=== PATIENT | female | born 1995 | race Two or more races ===

== ENCOUNTER 2017-09-29 20:50 | Emergency (ER) | payer BC ==
[2017-09-29 21:01] VITALS: BMI 16.8
--- NOTE | 2017-09-29 21:03 | PDOC ---
Rapid Medical Evaluation Chief Complaint: Headache Time Seen by Provider: 09/29/17 20:59 Medical Evaluation: 09/29/17 20:59 I have performed a brief in-person evaluation of this patient. The patient presents with a chief complaint of: nausea, abd pain, dysmenorhea= menses x 12 days, no fevers,+ URI symptoms Pertinent physical exam findings: pale, , frontal sinus pain and fullness, lungs clear. Tired I have ordered the following: UA/UCG , type and screen, cbc, cmp The patient will proceed to the ED for further evaluation. 09/29/17 21:02 09/29/17 21:03
[2017-09-29 21:40] LABS: URINE APPEARANCE CLEAR; URINE BILIRUBIN NEGATIVE (<2.0 mg/dL); URINE BLOOD 2+ (NEGATIVE); URINE COLOR LTYELLOW; URINE GLUCOSE (UA) NEGATIVE (NEGATIVE); URINE KETONE NEGATIVE (NEGATIVE); URINE NITRITE NEGATIVE (NEGATIVE); URINE UROBILINOGEN 4.0 E.U/dl mg/dL (0.2-1.0)
[2017-09-29 21:41] LABS: URINE LEUK ESTERASE 1+ (NEGATIVE); URINE PROTEIN 1+ (NEGATIVE)
[2017-09-29 21:44] LABS: EPI CELLS RARE /HPF (FEW); URINE MUCUS RARE
[2017-09-29 22:11] LABS: BASO % 0.3 % (0-2.0); EOS % 0.1 % (0-4.5); HEMATOCRIT 35.2 % (32.4-45.2); HEMOGLOBIN 11.9 GM/dL (10.7-15.3); LYMPH % 9.9 % (8-40); MCH 30.3 pg (25.7-33.7); MCHC 33.7 g/dl (32.0-36.0); MEAN PLT VOLUME 10.1 fl (7.5-11.1); MONO % 11.5 % (3.8-10.2); NEUT % 78.2 % (42.8-82.8); PLATELET COUNT 148 K/MM3 (134-434); RBC 3.91 M/mm3 (3.60-5.2); RDW 12.8 % (11.6-15.6); WHITE BLOOD COUNT 5.7 K/mm3 (4.0-10.0)
[2017-09-29 22:30] LABS: ALBUMIN 3.4 g/dl (3.4-5.0); ALK PHOS 46 U/L (45-117); ANION GAP 8 (8-16); BILIRUBIN,TOTAL 0.3 mg/dL (0.2-1.0); BLOOD UREA NITROGEN 5 mg/dL (7-18); CHLORIDE 105 mmol/L (98-107); CO2 27 mmol/L (21-32); CREATININE 0.9 mg/dL (0.55-1.02); GLUCOSE,RANDOM 105 mg/dL (74-106); POTASSIUM 3.7 mmol/L (3.5-5.1); SGOT/AST 20 U/L (15-37); SGPT/ALT 26 U/L (12-78); SODIUM 140 mmol/L (136-145); TOT PROT 6.6 g/dl (6.4-8.2)
[2017-09-29 22:54] LABS: HCG,QUALITATIVE URINE NEGATIVE
[2017-09-29] MEDS ORDERED: SODIUM CHLORIDE 0.9% 1000 ML INFUS.BAG IV ONE (23:52)
[2017-09-29] MEDS ORDERED: KETOROLAC TROMETHAMINE 30 MG/1 ML VIAL IVPUSH ONE (23:52)
[2017-09-29] MEDS ORDERED: ACETAMINOPHEN 1000 MG/100 ML VIAL (NON FORMULARY) IVPB ONE (23:52)
[2017-09-30] MEDS ORDERED: ACETAMINOPHEN INJECTION 100 ML IVPB ONE (00:16)
[2017-09-30] MEDS ORDERED: KETOROLAC TROMETHAMINE 30 MG/1 ML VIAL ONE (00:17)
[2017-09-30] MEDS ORDERED: CEFTRIAXONE 1 GM in DEXTROSE 5%-WATER - 100 ML IVPB ONE (00:41)
--- NOTE | 2017-09-30 00:59 | PDOC ---
History of Present Illness - General History Source: Patient Exam Limitations: No Limitations - History of Present Illness Initial Comments: 09/30/17 01:14 The patient is a 21 year old female with a significant PMH of chronic UTI who presents to the emergency department with a severe headache since yesterday. The patient reports that she has been experiencing intermittent headaches for 12 days. The patient states that she usually takes medication for frequent migraines but, last night when her headache began it was not alleviated by medication. The patient describes her headache as a burning sensation that is constant. She states that she has been unable to eat secondary to her headache, she states that the smell of foods makes her nauseous. The patient also reports experiencing constant lower back pain . she reports that she was last treated for a UTI 3 weeks ago . she denies any urinary symptoms, or abdominal pain. The patient denies fever, chills, vomit, diarrhea and constipation. She denies any chest pain, shortness of breath, and dizziness. The patient denies any other complaints. <Shai Allison - Last Filed: 09/30/17 01:50> <Ovi Méndez - Last Filed: 09/30/17 02:00> - General Chief Complaint: Weakness Stated Complaint: FATIGUE Time Seen by Provider: 09/29/17 20:59 Past History <Shai Allison - Last Filed: 09/30/17 01:50> - Past Medical History COPD: No - Suicide/Smoking/Psychosocial Hx Smoking History: Never smoked <Ovi Méndez - Last Filed: 09/30/17 02:00> - Past Medical History Allergies/Adverse Reactions: Allergies Allergy/AdvReac Type Severity Reaction Status Date / Time No Known Allergies Allergy Verified 09/29/17 21:01 Home Medications: Ambulatory Orders Cephalexin Monohydrate [Keflex -] 500 mg PO Q8H 14 Days #42 capsule 09/30/17 Ondansetron [Zofran Odt -] 4 mg SL BID #14 od.tablet 09/30/17 Review of Systems - Review of Systems Able to Perform ROS?: Yes Comments:: 09/30/17 01:14 Constitutional: No recent illness; no fever ENT: No sore throat Cardiovascular: No palpitations; no chest pain Pulmonary: No cough; no trouble breathing Gastrointestinal:(+)nausea; no vomiting; no diarrhea Genitourinary: No urinary problems; no hematuria Skin: No rash Lymph system: No swollen glands Musculoskeletal: No joint swelling Neurological: (+)Headache. No weakness; No numbness; no vertigo; no lightheadedness Psychiatric:No anxiety; no depression ROS: A complete review of 10 out of 10 review of systems is taken and is negative apart from what is previously mentioned below and in the HPI. <Shai Allison - Last Filed: 09/30/17 01:50> *Physical Exam - Vital Signs Last Vital Signs Temp Pulse Resp BP Pulse Ox 98.9 F 112 H 18 107/60 99 09/29/17 20:58 09/29/17 20:58 09/29/17 20:58 09/29/17 20:58 09/29/17 20:58 - Physical Exam Comments: 09/30/17 01:52 Vitals: Triage vital signs reviewed General Appearance: No acute distress, well nourished, well developed Head: Atraumatic Eyes: Pupils equal reactive round, extraocular movement intact Throat: Posterior oropharynx without erythema, mucous membranes moist Neck: Supple; No nuchal rigidity Chest Wall: Nontender Cardiac: Regular rate and rhythm, no murmurs, no rubs, no gallops Lungs: Clear to auscultation bilateral, good air movement bilaterally Abdomen: Soft, nondistended, normal bowel sounds, nontender to palpation Extremities: (+)left CVA tenderness. Full range of motion to all extremities, no cyanosis, clubbing, or edema Skin: Warm and dry, no rashes or lesions, no rash, no petechiae Neuro: AOX3; Cranial Nerves 2-12 grossly intact, Strength intact to all extremities, Sensation intact to all extremities, gait normal Psych: Normal mood, normal affect <Shai Allison - Last Filed: 09/30/17 01:50> - Vital Signs Last Vital Signs Temp Pulse Resp BP Pulse Ox 98.9 F 112 H 18 107/60 99 09/29/17 20:58 09/29/17 20:58 09/29/17 20:58 09/29/17 20:58 09/29/17 20:58 <Ovi Méndez - Last Filed: 09/30/17 02:00> ED Treatment Course - LABORATORY CBC & Chemistry Diagram: 09/29/17 21:18 09/29/17 21:18 - ADDITIONAL ORDERS Additional order review: Laboratory Results 09/29/17 09/29/17 21:27 21:18 Sodium 140 Potassium 3.7 Chloride 105 Carbon Dioxide 27 Anion Gap 8 BUN 5 L Creatinine 0.9 Creat Clearance w eGFR > 60 Random Glucose 105 Calcium 8.0 L Total Bilirubin 0.3 AST 20 ALT 26 Alkaline Phosphatase 46 Total Protein 6.6 Albumin 3.4 Urine Color Ltyellow Urine Appearance Clear Urine pH 6.0 Ur Specific [place] 1.015 Urine Protein 1+ H Urine Glucose (UA) Negative Urine Ketones Negative Urine Blood 2+ H Urine Nitrite Negative Urine Bilirubin Negative Urine Urobilinogen 4.0 e.u/dl H Ur Leukocyte Esterase 1+ H Urine WBC (Auto) 29 Urine RBC (Auto) 2 Ur Epithelial Cells Rare Urine Mucus Rare Urine HCG, Qual Negative 09/29/17 21:18 RBC 3.91 MCV 90.0 MCHC 33.7 RDW 12.8 MPV 10.1 Neutrophils % 78.2 Lymphocytes % 9.9 Monocytes % 11.5 H Eosinophils % 0.1 Basophils % 0.3 - Medications Given in the ED: ED Medications Discontinued Medications Generic Name Dose Route Start Last Admin Trade Name Freq PRN Reason Stop Dose Admin Acetaminophen 1,000 mg 09/29/17 23:52 09/30/17 00:36 Ofirmev Injection - IVPB 09/29/17 23:53 1,000 mg ONCE ONE Administration Ketorolac Tromethamine 30 mg 09/29/17 23:52 09/30/17 00:37 Toradol Injection - IVPUSH 09/29/17 23:53 30 mg ONCE ONE Administration Sodium Chloride 1,000 ml 09/29/17 23:52 09/30/17 00:15 Normal Saline - IV 09/29/17 23:53 1,000 ml ONCE ONE Administration <Shai Allison - Last Filed: 09/30/17 01:50> - LABORATORY CBC & Chemistry Diagram: 09/29/17 21:18 09/29/17 21:18 - ADDITIONAL ORDERS Additional order review: Laboratory Results 09/29/17 09/29/17 21:27 21:18 Sodium 140 Potassium 3.7 Chloride 105 Carbon Dioxide 27 Anion Gap 8 BUN 5 L Creatinine 0.9 Creat Clearance w eGFR > 60 Random Glucose 105 Calcium 8.0 L Total Bilirubin 0.3 AST 20 ALT 26 Alkaline Phosphatase 46 Total Protein 6.6 Albumin 3.4 Urine Color Ltyellow Urine Appearance Clear Urine pH 6.0 Ur Specific [place] 1.015 Urine Protein 1+ H Urine Glucose (UA) Negative Urine Ketones Negative Urine Blood 2+ H Urine Nitrite Negative Urine Bilirubin Negative Urine Urobilinogen 4.0 e.u/dl H Ur Leukocyte Esterase 1+ H Urine WBC (Auto) 29 Urine RBC (Auto) 2 Ur Epithelial Cells Rare Urine Mucus Rare Urine HCG, Qual Negative 09/29/17 21:18 RBC 3.91 MCV 90.0 MCHC 33.7 RDW 12.8 MPV 10.1 Neutrophils % 78.2 Lymphocytes % 9.9 Monocytes % 11.5 H Eosinophils % 0.1 Basophils % 0.3 - Medications Given in the ED: ED Medications Discontinued Medications Generic Name Dose Route Start Last Admin Trade Name Mago PRN Reason Stop Dose Admin Acetaminophen 1,000 mg 09/29/17 23:52 09/30/17 00:36 Ofirmev Injection - IVPB 09/29/17 23:53 1,000 mg ONCE ONE Administration Ketorolac Tromethamine 30 mg 09/29/17 23:52 09/30/17 00:37 Toradol Injection - IVPUSH 09/29/17 23:53 30 mg ONCE ONE Administration Sodium Chloride 1,000 ml 09/29/17 23:52 09/30/17 00:15 Normal Saline - IV 09/29/17 23:53 1,000 ml ONCE ONE Administration <Ovi Méndez - Last Filed: 09/30/17 02:00> Medical Decision Making - Medical Decision Making 09/30/17 01:16 The patient is a 21 year old female with a significant PMH of chronic UTI who presents to the emergency department with a severe headache since yesterday. The patient reports that she has been experiencing intermittent headaches for 12 days. The patient states that she usually takes medication for frequent migraines but, last night when her headache began it was not alleviated by medication. The patient describes her headache as a burning sensation that is constant. She states that she has been unable to eat secondary to her headache, she states that the smell of foods makes her nauseous. The patient also reports experiencing constant lower back pain . she reports that she was last treated for a UTI 3 weeks ago . she denies any urinary symptoms, or abdominal pain. The patient denies fever, chills, vomit, diarrhea and constipation. She denies any chest pain, shortness of breath, and dizziness. The patient denies any other complaints. The patinet will get tylenol, fluids and toradol for pain. <Shai Allison - Last Filed: 09/30/17 01:50> - Medical Decision Making Patient endorses some dysuria on additional history as well as some back discomfort. Her physical exam was notable for left CVA tenderness to palpation. History examination consistent with pyelonephritis. No fever no white count vital signs have improved patient feels much better after IV fluids Tylenol and Toradol. No ALLERGIES we'll discharge with 14 day course of Keflex 500 mg by mouth 3 times a day per MRI antibiotic guidelines Patient advised to return to the emergency Department immediately for any severe pain vomiting inability to tolerate fluids or antibiotics for for any concerns. She will follow up with her primary care provider within 1-2 days Findings, need for follow-up and strict return instructions discussed with patient. <Ovi Méndez - Last Filed: 09/30/17 02:00> *DC/Admit/Observation/Transfer - Attestations Scribe Attestion: 09/30/17 01:15 Documentation prepared by Shai Alilson, acting as medical service technician for Ovi Méndez MD. <Shai Allison - Last Filed: 09/30/17 01:50> - Discharge Dispostion Decision to Admit order: No <Ovi Méndez - Last Filed: 09/30/17 02:00> Diagnosis at time of Disposition: Pyelonephritis - Discharge Dispostion Disposition: HOME Condition at time of disposition: Good - Referrals Referrals: [facility] [place] [Provider Group] - Patient Instructions Printed Discharge Instructions: Kidney Infection Additional Instructions: Drink plenty of fluids. Take antibiotics as prescribed. Take [id number] probiotic as directed on packaging. Take [id number] Tylenol as directed on package as needed for fever. Take [id number] Motrin as directed on package as needed for pain. Zofran as needed for nausea as prescribed Return to the emergency Department immediately for any severe worsening pain inability to tolerate fluids or antibiotics if he starts to feel very sick for any vomiting or for any concerns. Follow-up with your doctor in 1-2 days or with the clinic at [facility]. - Post Discharge Activity Forms/Work/School Notes: Back to Work
[2017-09-30] MEDS ORDERED: CEFTRIAXONE 1 GM/50 ML BAG ONE (01:22)
[2017-09-30 01:58] VITALS: BP 110/68; PULSE 72; TEMP 98.6
== END 2017-09-30 02:04 | disposition home or self-care (01) ==
LOC: JER 20:50
PROC: 3E03329 Introduction of Other Anti-infective into Peripheral Vein, Percutaneous Approach (ICD-10-PCS; principal; 2017-09-29)
PROC: 3E033NZ Introduction of Analgesics, Hypnotics, Sedatives into Peripheral Vein, Percutaneous Approach (ICD-10-PCS; 2017-09-29)
PROC: 3E0333Z Introduction of Anti-inflammatory into Peripheral Vein, Percutaneous Approach (ICD-10-PCS; 2017-09-29)
DX: N12 Tubulo-interstitial nephritis, not specified as acute or chronic (principal); Z87.440 Personal history of urinary (tract) infections
CPT/HCPCS: 36415; 80053; 81003; 81015; 84703; 85025; 99281-25; J0131; J7030